=== PATIENT | female | born 1960 | race Hispanic/Latino ===

== ENCOUNTER 2018-09-12 07:58 | Inpatient (IN) | payer OTHER ==
[~2018-09-12] VITALS: Ht 157.5 cm; Wt 76.8 kg
[~2018-09-12 07:58] MED LIST: BUPIVACAINE 7.5MG/ML /DEXTROSE 82.5MG/ML 2 ML AMP INJ ONE; ROPIVACAINE 246.25 MG, EPINEPHRINE HCL 1:1000 1ML 0.5 MG, CLONIDINE HCL 0.08 MG, KETORO... INJ ONE; TYLENOL PO; VITAMIN D2400 UNIT PO
[2018-09-12] MEDS ORDERED: DEXAMETHASONE SOD PHOS 10 MG/1 ML VIAL ONE (08:19)
[2018-09-12] MEDS ORDERED: GABAPENTIN 300 MG CAP ONE (08:19)
[2018-09-12] MEDS ORDERED: CELECOXIB 200 MG CAP ONE (08:19)
[2018-09-12] MEDS ORDERED: CEFAZOLIN SOD 2 GM/D5W 50ML 50 ML IV ONE (08:20)
[2018-09-12] MEDS ORDERED: SODIUM CHLORIDE 0.9% 500ML 500 ML ONE (09:08)
[2018-09-12] MEDS ORDERED: VANCOMYCIN HCL 1 GM VIAL ONE (09:08)
[2018-09-12] MEDS ORDERED: BACITRACIN 50,000 UNIT VIAL ONE (09:09)
[2018-09-12] MEDS ORDERED: TRANEXAMIC ACID 1,000 MG/10 ML ML ONE (09:09)
[2018-09-12] MEDS ORDERED: HYDROMORPHONE 2MG/ML 2 MG/ML ML ONE (10:49)
[2018-09-12] MEDS ORDERED: HYDROCODONE/APAP 5MG-325MG TAB PO PRN (11:30)
[2018-09-12] MEDS ORDERED: DIPHENHYDRAMINE HCL INJ 50 MG/ML VIAL IM/IV PRN (11:30)
[2018-09-12] MEDS ORDERED: ONDANSETRON HCL INJ 2MG/ML 2ML 2 MG/ML VIAL IV PRN (11:30)
[2018-09-12] MEDS ORDERED: PROMETHAZINE HCL (IM) 25 MG/ML VIAL IM PRN (11:30)
[2018-09-12] MEDS ORDERED: ACETAMINOPHEN 650 MG SUPP PR PRN (11:30)
[2018-09-12] MEDS ORDERED: DOCUSATE SODIUM 100 MG CAP PO PRN (11:30)
[2018-09-12] MEDS ORDERED: KETOROLAC TROMETHAMINE 30 MG/ML VIAL IV PRN (11:30)
--- NOTE | 2018-09-12 12:34 | Diagnostic Imaging Report ---
Right hip radiograph-1 view, AP radiograph of the pelvis History: Status post right hip arthroplasty. Comparison: None. Findings: Status post right total hip arthroplasty with prosthetic components in anatomic alignment. Overlying subcutaneous emphysema and surgical skin merary are present. AP radiograph of the pelvis demonstrates moderate degenerative changes of the left hip. No acute osseous abnormality. IMPRESSION: Post operative findings status post right total hip arthroplasty with anatomic alignment. Signed by: Dr. Eliza Dueñas MD on 09/12/2018 12:31 PM
[2018-09-12 14:00] VITALS: BP 113/73
[2018-09-12 14:10] VITALS: BP 113/73
[2018-09-12 14:17] VITALS: BP 113/73
[2018-09-12] MEDS ORDERED: LIDOCAINE HCL 2% LOCAL INJ 5 ML SDV VIAL INJ ONE (14:37)
[2018-09-12] MEDS ORDERED: NEOSTIGMINE 5 MG/5ML SYR ONE (14:37)
[2018-09-12] MEDS ORDERED: DEXAMETHASONE SOD PHOS INJ 4 MG/ML VIAL ONE (14:37)
[2018-09-12] MEDS ORDERED: SEVOFLURANE INHAL SOLN 250 ML PEN BTL ONE (14:37)
[2018-09-12] MEDS ORDERED: GLYCOPYRROLATE INJ 1MG/ 5 ML SYR ONE (14:37)
[2018-09-12] MEDS ORDERED: ONDANSETRON HCL INJ 2MG/ML 2ML 2 MG/ML VIAL ONE (14:37)
[2018-09-12] MEDS ORDERED: ROCURONIUM BROMIDE 10 MG/ML 5ML VIAL ONE (14:37)
[2018-09-12] MEDS ORDERED: PROPOFOL IV EMULSION 10 MG/ML 20 ML VIAL ONE (14:37)
[2018-09-12] MEDS: SODIUM CHLORIDE 0.9% 1000ML 1,000 ML IV SCH ×2 (14:47→22:14)
[2018-09-12] MEDS: CEFAZOLIN SOD 1 GM/NS 50ML 50 ML IV SCH (16:06)
[2018-09-12] MEDS: CELECOXIB 200 MG CAP PO SCH (16:06)
[2018-09-12] MEDS: ASPIRIN 325 MG TAB PO SCH (16:06)
[2018-09-12 16:16] VITALS: BP 120/61
[2018-09-12] MEDS: ACETAMINOPHEN 1000 MG/100 ML IV SCH ×2 (16:45→23:51)
[2018-09-12] MEDS ORDERED: CELECOXIB 100 MG CAP PO SCH (17:00)
[2018-09-12] MEDS ORDERED: MIDAZOLAM HCL 2 MG/2 ML VIAL ONE (18:36)
[2018-09-12] MEDS ORDERED: FENTANYL CITRATE/PF 100MCG/2 ML INJ ONE (18:36)
[2018-09-12 20:00] VITALS: BP 98/60
[2018-09-12] MEDS ORDERED: ZOLPIDEM TARTRATE 5 MG TAB PO PRN (21:00)
[2018-09-13] VITALS: BP 97/55
[2018-09-13] MEDS: CEFAZOLIN SOD 1 GM/NS 50ML 50 ML IV SCH ×2 (00:24→08:47)
[2018-09-13 01:00] VITALS: BP 98/60
[2018-09-13 04:00] VITALS: BP 98/58
--- NOTE | 2018-09-13 05:19 | Consultation ---
DATE OF CONSULTATION: REASON FOR CONSULTATION: Postop medical management. HISTORY OF PRESENT ILLNESS: Patient is a 57-year-old lady who is status post right hip arthroplasty, who is doing well postoperatively with minimal pain in the right hip. Denies any chest pain, fever, chills, nausea, vomiting, headaches, shortness of breath, or dizziness. PAST MEDICAL HISTORY: Significant for reflux and osteoarthritis. MEDICATIONS: See MAR. ALLERGIES: NONE. SOCIAL HISTORY: Nondrinker and nonsmoker. . FAMILY HISTORY: CVA. PHYSICAL EXAMINATION VITALS: 98, pulse 73, blood pressure 98/60, sats 97%. GENERAL: She is in no apparent distress. LUNGS: Clear to auscultation bilaterally. NECK: Supple. No lymphadenopathy. CARDIOVASCULAR: Regular rate and rhythm. ABDOMEN: Good bowel sounds. Soft and nontender. EXTREMITIES: No clubbing or cyanosis. NEUROLOGIC: Nonfocal. ASSESSMENT AND PLAN 1. Hypotension: Will continue to monitor since the patient is actually asymptomatic. 2. Anemia: Will check a CBC. 3. Right hip pain: Will continue with physical therapy. 4. History of reflux disease: Continue with her medications. Please see hospital chart for full details. Job#: [id number] DE
[2018-09-13] MEDS: HYDROCODONE/APAP 7.5MG-325MG 1 EA TAB PO PRN ×2 (05:42→11:02)
[2018-09-13] MEDS: ACETAMINOPHEN 1000 MG/100 ML IV SCH (05:54)
[2018-09-13] MEDS: SODIUM CHLORIDE 0.9% 1000ML 1,000 ML IV SCH (07:18)
[2018-09-13 07:54] VITALS: BP 98/55
[2018-09-13 08:23] LABS: HEMATOCRIT 31.9 % (34.2-44.1); HEMOGLOBIN 10.7 g/dL (12.0-16.0)
[2018-09-13] MEDS: CELECOXIB 200 MG CAP PO SCH (08:47)
[2018-09-13] MEDS: ASPIRIN 325 MG TAB PO SCH (08:47)
[2018-09-13] MEDS ORDERED: ASPIRIN325 MG PO (08:52)
--- NOTE | 2018-09-13 09:40 | Operative Report ---
DATE OF PROCEDURE: September 12, 2018 PREOPERATIVE DIAGNOSIS: Osteoarthritis, right hip. POSTOPERATIVE DIAGNOSIS: Osteoarthritis, right hip. PROCEDURE: Right total hip arthroplasty. FILTERATION OPERATOR: Hira Sharma PA-C The patient was brought to the operating room for induction of anesthesia. Throughout this case, my PA's assistance was necessary for retraction of soft tissue and positioning of the extremity. This allows for efficient and technically successful execution of the operation and is considered medically necessary. INDICATIONS: The patient is a 57-year-old lady who has end-stage arthritis of her right hip. She has failed extensive conservative management and would like to proceed with a right total hip replacement. The risks and benefits of the procedure have been explained. She states she understands and wishes to proceed. DESCRIPTION OF PROCEDURE: The patient was brought to the operating room and placed under general anesthetic. An attempt at a spinal was unsuccessful. She received prophylactic antibiotics and tranexamic acid in the holding area. She was positioned in the left lateral decubitus position. Her right hip was prepped and draped in a sterile manner. A preoperative time out was performed. A posterior approach to the right hip was made. Dense healthy muscle was encountered. The hip was severely contracted. Exposure of the posterior capsule was somewhat challenging. The posterior capsule and short external rotators were released. The hip was dislocated and an oscillating saw was used to resect the femoral head. Severe deformity and loss of articular cartilage was noted of the femoral head. Soft tissue releases were performed to place acetabular retractors and obtain adequate visualization of the socket. The remnants of the labrum were excised. The true floor of the acetabulum was established with a 46-mm reamer. The socket was then sequentially reamed to 53 mm. A Deonna Biomet 54 mm outer diameter OsseoTi socket was then impacted into place. Fixation was augmented with a single 20-mm cancellous screw. Throughout this portion of the case, the hip had been thoroughly irrigated numerous times with a shower-tip pulsatile lavage. A portion of a 100 mL premixed pericapsular PAULINO injection was placed into the surrounding soft tissue. A highly cross-linked polyethylene liner with no posterior elevation was seated into the socket. Care was taken to make sure that there was no evidence of soft tissue interposition. The socket was packed with a moistly soaked lap sponge and attention was directed towards the proximal femur. A box cutting osteotome and taper pin reamer were used to enter the femoral canal. The Deonna Biomet Taperloc broaches were impacted into place. A size 10 stem had appropriate canal fill and stability. Trial reductions were performed with a standard 36-mm head. The hip demonstrated quite good stability. The limb length, as previously documented, was well off because of a pelvic obliquity. We basically restored the preoperative anatomy. The trial implants were then removed and the hip was further irrigated with a shower-tip pulsatile lavage. The remainder of the pericapsular PAULINO injection was placed into the soft tissue. The implant was seated and the head was seated onto a clean and dry stem. A final reduction was performed. The posterior capsule was repaired with #2 Ethibond. The remainder of the short external rotators were severely contracted and not worth repairing. The proximal tensor fascia and gluteal fascia were closed with interrupted #2 Ethibond. The skin was closed with subcuticular Vicryl and merary. A sterile bandage was applied. The patient was extubated and transported to the recovery room in stable condition. Blood loss was approximately 100 mL. All needle and sponge counts were correct. Job#: [id number]
[2018-09-13 10:01] VITALS: BP 98/55
[2018-09-13] MEDS ORDERED: NORCO 7.5-3251 EACH PO (11:21)
[2018-09-13] MEDS ORDERED: ACETAMINOPHEN 1000 MG/100 ML IV PRN (11:30)
[2018-09-13 11:56] VITALS: BP 90/59
== END 2018-09-13 11:48 | disposition home health service (06) | DRG 470 ==
LOC: OR 07:58 → PACU V 11:21 → MED/SURG 14:03
PROVIDERS: ADMIT Specialist; ATTEND Specialist
PROC: 0SR904Z Replacement of Right Hip Joint with Ceramic on Polyethylene Synthetic Substitute, Open Approach (ICD-10-PCS; principal; 2018-09-13)
DX: M16.11 Unilateral primary osteoarthritis, right hip (principal); K21.9 Gastro-esophageal reflux disease without esophagitis; I95.9 Hypotension, unspecified; D64.9 Anemia, unspecified; F17.210 Nicotine dependence, cigarettes, uncomplicated
CPT/HCPCS: 36415; 72170; 85014; 85018; 86850; 86900; 86920; C1713; J0171; J0690; J1100; J1885; J2001; J2250; J2405; J2795; J3370; J7030; J7040